=== PATIENT | male | born 1985 | race Caucasian/White ===

== ENCOUNTER 2017-01-04 08:55 | Emergency (ER) | payer OTHER ==
--- NOTE | 2017-01-05 11:08 | ER ---
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 He also has some anxiety, he has borderline potassium, but he has been throwing up. Usually when he comes off alcohol, he starts to throw up. At this time, he was given Zofran, Ativan 1 IV and then we gave him 50 of Librium p.o. He is much calmer. His is with him. We have seen him before. We referred him to [facility]. I also sent him home with Xanax 0.5 mg, #30, half to one p.o. q.8-12 p.r.n. anxiety since he does have an underlying anxiety disorder at least according to his , he has gone long time without drinking and then he starts developing anxiety and he self medicates himself with alcohol. At this time, he is discharged to his 's care. We have given him referral to [facility]. CONDITION ON DISCHARGE: Fair. Cassius Walker MD/ rachana JOB #: [id number] CC: Cassius Walker MD, Attending Physician
--- NOTE | 2017-01-08 12:53 | NUR ---
Received SAD person referral. Called and spoke with pt. Pt states he was able to get his medications filled that were prescribed in the ED. States he is completing alcohol treatment also. Deny any needs or concerns at this time.
== END 2017-01-04 10:50 | disposition home or self-care (01) ==
LOC: ER 08:55
DX: F10.20 Alcohol dependence, uncomplicated (principal); F41.9 Anxiety disorder, unspecified